=== PATIENT | female | born 1945 | race Two or more races ===

== ENCOUNTER 2017-12-20 07:00 | Day surgery (SDC) | payer OTHER ==
[~2017-12-20] VITALS: Ht 152.4 cm; Wt 61.2 kg
[~2017-12-20 07:00] MED LIST: COZAAR50 MG PO; METROPOLOL PO
== END 2017-12-21 07:00 | disposition home or self-care (01) ==
LOC: CIR.AMB 07:00 → SURH 07:00 → EDSTATUS 07:30 → SURG 15:39 → O/R 15:39 → CIR.AMB 12-21 07:00 → O/R 12-21 08:39 → SURG 12-21 08:39
DX: C50.311 Malignant neoplasm of lower-inner quadrant of right female breast (principal); I10 Essential (primary) hypertension